=== PATIENT | male | born 2000 | race Two or more races ===

== ENCOUNTER → 2025-03-18 | Emergency (ER) | payer OTHER ==
[~2025-03-18] VITALS: Ht 188 cm; Wt 88.0 kg
[~2025-03-18] MED LIST: 0.9 % SODIUM CHLORIDE 500 ML IV ONE; ACID REDUCER20 M1 PO; MIRALAX17 GM PO; PEPCID AC10 MG PO
[2025-03-18 15:39] LABS: BASO % 0.7 % (0.1-1.2); EOS # 0.07 (0.04-0.54); EOS % 1.2 % (0.7-7.0); HEMATOCRIT 42.7 % (40.1-51.0); HEMOGLOBIN 14.8 g/dL (13.7-17.5); LYMPH # 2.94 (1.18-3.74); LYMPH % 51.9 % (19.3-53.1); MEAN CORPUSCULAR HEMOGLOBIN 28.7 pg (25.6-32.2); MONO # 0.46 (0.24-0.82); MONO % 8.1 % (4.7-12.5); NEUT # 2.15 (1.56-6.13); NEUT % 38.1 % (34.0-71.1); PLATELET COUNT 261 K/uL (163-369); RED BLOOD COUNT 5.16 M/uL (4.63-6.08); RED CELL DISTRIBUTION WIDTH 12.3 % (11.6-14.4)
[2025-03-18 16:09] LABS: ALBUMIN 4.3 gm/dL (3.4-5.0); BILIRUBIN TOTAL 1.48 mg/dL (0.3-1.2); BILIRUBIN,CONJUGATED 0.28 mg/dL (0.0-0.2); BILIRUBIN,UNCONJUGATED 1.2 mg/dL (0.0-0.6); CALCIUM 9.4 mg/dL (8.5-10.1); CREATININE SERUM 0.99 mg/dL (0.70-1.30); GFR 92.87; GLOBULINA 3.4 G/DL (2.4-3.5); POTASSIUM 4.14 mEq/L (3.5-5.1); TOTAL PROTEIN 7.7 gm/dL (6.4-8.2)
[2025-03-18 16:15] LABS: URINE APPEARANCE Clear; URINE BILIRRUBIN Negative (NEGATIVE); URINE BLOOD Negative; URINE COLOR Yellow; URINE GLUCOSE Negative (NEGATIVE); URINE KETONE Negative (NEGATIVE); URINE LEUKOCYTE Negative; URINE NITRATE Negative; URINE PROTEIN Negative (NEGATIVE); URINE UROBILINOGEN 0.2 E.U./dl
[2025-03-18 16:17] LABS: URINE WBC 2.1 uL (0.0-23.2)
[2025-03-18 16:20] LABS: URINE BACTERIA 3.6 uL (0.0-1933); URINE EPITHELIAL CELLS 0.4 uL (0.0-38.8); URINE RBC 0.7 uL (0.0-20.8)
== END | disposition home or self-care (01) ==
LOC: ER 12:33
PROVIDERS: Emergency Medicine
DX: K59.00 Constipation, unspecified (principal)
CPT/HCPCS: 36415; 74177; 93005; Q9965